=== PATIENT | male | born 1945 | race Asian ===

== ENCOUNTER 2019-08-18 11:25 | Emergency (ER) | payer OTHER, BC ==
[~2019-08-18] VITALS: Ht 170.2 cm; Wt 85.7 kg
[2019-08-18 11:42] VITALS: Ht 170.2 cm; Wt 85.7 kg
[2019-08-18 12:35] LABS: BASOPHIL % 0.3 % (0-2); RED CELL DISTRIBUTION WIDTH 12.8 % (11.5-14.5)
[2019-08-18 12:37] LABS: CALCIUM 8.6 mg/dL (8.5-10.1); CARBON DIOXIDE 24.1 mmol/L (21-32); CHLORIDE SERUM 101 mmol/L (98-107); CREATININE SERUM 1.4 mg/dL (0.7-1.3); GLUCOSE SERUM 129 mg/dL (74-106); SODIUM SERUM 136 mmol/L (136-145)
[2019-08-18 12:37] LABS: UA SPECIFIC GRAVITY >=1.030 (1.005-1.035); microscopic required? YES; urine erythrocyte 3+ (NEGATIVE)
[2019-08-18 12:39] LABS: PLATELET COUNT 108 x10^3mcL (130-400)
[2019-08-18 12:41] LABS: ALKALINE PHOSPHATASE 54 U/L (46-116); ALT/SGPT 29 U/L (16-63); AST/SGOT 21 U/L (15-37); BILIRUBIN TOTAL 0.39 mg/dL (0.20-1.00); TOTAL PROTEIN, SERUM 7.2 g/dL (6.4-8.2)
[2019-08-18 13:58] VITALS: BP 149/80
== END 2019-08-18 13:58 | disposition home or self-care (01) ==
LOC: ED 11:25
PROVIDERS: Emergency Medicine
DX: N13.2 Hydronephrosis with renal and ureteral calculous obstruction (principal); Z87.442 Personal history of urinary calculi
CPT/HCPCS: 36415; Q0092